=== PATIENT | male | born 1940 | race Asian ===

== ENCOUNTER 2023-07-07 20:22 | Emergency (ER) | payer SELFPAY ==
[2023-07-07 20:29] VITALS: BP 115/58
--- NOTE | 2023-07-08 00:08 | ED.GENMED ---
History of Present Illness
General
Chief Complaint: Fall
Source: patient and family
Exam Limitations: dementia
Time Seen by Provider: 07/07/23 22:24
Nursing documentation reviewed up to this point in time: agreed with
Travel History
Have you had any contact with someone who has COVID-19?: No
Do you have any symptoms of coronavirus? Fever > 100 degrees, chills, cough, shortness of breath, sore throat, loss of taste or smell, muscle aches, or headache?: No
History of Present Illness
History of Present Illness:
83-year-old male from home, daughter is in the room with him they state he ate dinner and then went to the bathroom and in the process of cleaning his teeth he fell backwards and struck the back of his head on the floor. He is [place]ine[place] speaking
only. Daughters state that he remembers eating dinner but he does not remember falling. The daughter heard the fall and went immediately to the bathroom and found him laying flat on his back having struck the back of his head on the wooden floor.
They admit that he has a 'bad memory.'
At this time he denies headache or neck pain. He is blind. He denies weakness in his extremities. Denies chest pain or trouble breathing. Denies abdominal pain, nausea vomiting or diarrhea.
There was no seizure activity. He is not anticoagulated. He did have a glass of wine with dinner.
Daughter state he is back to his baseline mental state.
Past History
Past History
ED Past Medical History: Psychiatric ('Memory loss'), Other (Prostatitis) and Other (Blindness)
Social History
Tobacco: Non-smoker
Alcohol: Occasional (Drinks 1)
Personal:
Living: with family
Review of Systems
Review of Systems
Allergies reviewed?: Yes
All Other Systems: ROS reviewed and negative except as documented in HPI and ROS
Constitutional: Denies fever
Respiratory: Denies trouble breathing
Cardiac: Reports syncope (questionable syncope); Denies chest pain
ABD/GI: Denies abdominal pain, nausea, vomiting, diarrhea or anorexia
: Denies dysuria or difficulty voiding
Musculoskeletal: Reports no symptoms
Skin: Reports no symptoms
Neurological: Denies dizzy or headache
Phy Exam
Physical Exam
Physical Exam:
GENERAL: No acute distress. A&Ox3.
CONSTITUTIONAL: Afebrile.
EYES: Blind with opaque cornea's
Neck: Supple
ENMT: moist mucus membranes, Pharynx nl
RESPIRATORY: Regular respirations, nonlabored, lungs clear.
CARDIOVASCULAR: Regular rate and rhythm, no murmurs, no rubs.
GI: Soft, nontender, normal BS
MUSCULOSKELETAL: Moves with ease. Well perfused. No edema
SKIN: Warm, dry, pink
PSYCH: Normal mood and affect. Well kept, interactive and appropriate
NEUROLOGIC: Awake, alert and oriented. No focal neurological deficits. Strength equal 5/5 throughout. Patient out of bed and ambulating with normal gait.
Course
Orders/Labs/Results
Orders:
Orders
07/08/23 00:05
Electrocardiogram (*1) Urgent
Reason for Study: Other
Other Reason for Exam: questionable syncope
EKG- Treatment ONCE
07/08/23 00:06
CT Head W/o Iv Contrast Urgent
Comment:
Reason For Exam: questionable syncope, fall hit head
07/08/23 00:19
Complete Blood Count/With Diff Urgent
Comprehensive Metabolic Panel Urgent
Troponin I Urgent
Abnormal Lab Results
07/08/23
00:19
RBC 3.98 L 10^6/uL
(4.70-6.10)
Hct 37.7 L %
(39.0-52.0)
MCV 94.7 H fL
(80.0-94.0)
MCH 34.9 H pg
(27.0-31.0)
Abs Immat Gran (auto) 0.1 H 10^3/uL
(0-0.05)
Immature Gran % 0.8 H %
(0-0.5)
Lymphocytes % 17.5 L %
(20.5-51.1)
BUN 21 H mg/dl
(9-20)
Glucose 114 H mg/dl
(70-99)
07/08/23 00:19
07/08/23 00:19
Vital Signs
Initial and Last Documented VS:
Initial Vital Signs
Temp Pulse Resp BP Pulse Ox
97.9 F 72 24 115/58 100
07/07/23 20:29 07/07/23 20:29 07/07/23 20:29 07/07/23 20:29 07/07/23 20:29
Last Documented Vital Signs
Temp Pulse Resp BP Pulse Ox
97.9 F 74 18 115/58 99
07/07/23 20:29 07/08/23 01:41 07/08/23 01:41 07/07/23 20:29 07/08/23 01:41
MDM/Problems Addressed
Differential Diagnosis Includes:
Questionable syncopal episode, TIA, dehydration, UTI, ACS
MDM/Problems Addressed:
83-year-old male from home, daughter is in the room with him they state he ate dinner and then went to the bathroom and in the process of cleaning his teeth he fell backwards and struck the back of his head on the floor. He is [place]ine[place] speaking
only. Daughters state that he remembers eating dinner but he does not remember falling. The daughter heard the fall and went immediately to the bathroom and found him laying flat on his back having struck the back of his head on the wooden floor.
They admit that he has a 'bad memory.'
At this time he denies headache or neck pain. He is blind. He denies weakness in his extremities. Denies chest pain or trouble breathing. Denies abdominal pain, nausea vomiting or diarrhea.
There was no seizure activity. He is not anticoagulated. He did have a glass of wine with dinner.
Daughter state he is back to his baseline mental state.
Vital signs stable
Afebrile
07/08/2023 0121 AM
Family state patient is basically back to his baseline, he is pleasant, cooperative, ambulates well with steady gait
CBC with no clinically significant abnormality
CMP with no clinically significant abnormality
Troponin normal
EKG sinus rhythm with PACs
Head CT: NAD
Pt had neg U/A here on 06/18 no need to repeat, order cancelled.
Workup neg, family comfortable taking him home.
*Critical Care Note
Total Time (30-74mins, 75-104mins- exclusive of procedures): Not Applicable
ED Attending Note
-
Portions of this chart may have been created with voice recognition software.� Occasional wrong word or��sound alike� substitutions may have occurred due to the inherent limitations of voice recognition software.
Discharge Plan
Departure
Patient Disposition: Home (Routine Discharge)
Date of Disposition: 07/08/23
Time of Disposition: :
Patient with high blood pressure during this ER visit?: No
Condition: Good
Discharge Problem:
Fall
Instructions: Head Injury in Adults (DC), Preventing falls in adults
Referrals:
NONE,* [Family Provider] -
Activity Restrictions/Additional Instructions:
As we discussed, your work up here shows nothing worrisome.
Interventions
Interventions:
*Risk Screen - Suicide Last Done: 07/07/23 20:29
*General Assessment Last Done: 07/08/23 01:40
*Neglect/Abuse Screening Last Done: 07/07/23 20:29
ED- Fall Risk Assessment Last Done: 07/08/23 00:40
*ED COVID-19 Vaccine History Last Done: 07/08/23 01:40
*Nursing Disposition Last Done: 07/08/23 01:41
ED-Musculoskeletal Assessment Last Done: 07/08/23 00:40
ED- Neurological Assessment Last Done: 07/08/23 00:40
ED-Skin Assessment Last Done: 07/08/23 00:40
Discharge Date and Time
Discharge Date/Time: 07/08/23 01:42
[2023-07-08 00:37] LABS: % Basophils 0.3 % (0-2); % Eosinophils 0.8 % (0-6); % Immature Granulocytes 0.8 % (0-0.5); % Lymphocytes 17.5 % (20.5-51.1); % Monocytes 7.1 % (1.7-9.3); % Neutrophils 73.5 % (42.2-75.2); Absolute Eosinophils 0.1 10^3/uL (0-0.7); Absolute Immature Granulocytes 0.1 10^3/uL (0-0.05); Absolute Lymphocytes 1.2 10^3/uL (1.2-3.4); Absolute Monocytes 0.5 10^3/uL (0.1-0.6); Absolute Neutrophils 4.9 10^3/uL (1.4-6.5); Hematocrit 37.7 % (39.0-52.0); Hemoglobin 13.9 g/dL (13.0-18.0); Mean Corp Hgb Conc. 36.9 g/dL (33.0-37.0); Mean Corpuscular Hgb 34.9 pg (27.0-31.0); Mean Corpuscular Volume 94.7 fL (80.0-94.0); Mean Platelet Volume 10.2 fL (7.4-10.4); Nucleated Red Blood Cells % 0 % (-); Platelet Count 131 10^3/uL (130-400); Red Blood Cell Count 3.98 10^6/uL (4.70-6.10); Red Cell Dist. Width 12.3 % (11.5-14.5); White Blood Cell Count 6.6 10^3/uL (4.8-10.8)
[2023-07-08 00:54] LABS: ALT (SGPT) 17 U/L (0-50); AST (SGOT) 24 U/L (17-59); Albumin 4.1 g/dl (3.5-5.0); Alkaline Phosphatase 61 U/L (38-126); Blood Urea Nitrogen 21 mg/dl (9-20); Calcium 8.8 mg/dl (8.4-10.2); Carbon Dioxide 27 mmol/L (22-30); Chloride 106 mmol/L (98-107); Glucose 114 mg/dl (70-99); Potassium 4.1 mmol/L (3.5-5.1); Sodium 135 mmol/L (135-145); Total Bilirubin 0.5 mg/dl (0.2-1.3); Total Protein 6.8 g/dl (6.3-8.2); eGFR > 60.00
[2023-07-08 01:07] LABS: Troponin I < 0.012 ng/ml
== END 2023-07-08 01:42 | disposition home or self-care (01) ==
LOC: EMR 20:22
PROVIDERS: Registered Nurse; EMERGENCY PHYSICIAN Emergency Medicine
DX: S09.90XA Unspecified injury of head, initial encounter (principal); W19.XXXA Unspecified fall, initial encounter; F03.90 Unspecified dementia, unspecified severity, without behavioral disturbance, psychotic disturbance, mood disturbance, and anxiety; H54.7 Unspecified visual loss
CPT/HCPCS: 99284; 70450; 80053; 84484; 85025; 93005

== ENCOUNTER 2024-09-14 12:49 | Inpatient (IN) | payer OTHER, SELFPAY ==
[2024-09-12] VITALS (7 sets, daily range): BP systolic 129–170; BP diastolic 58–103; BMI 21.6
--- NOTE | 2024-09-12 10:55 | ED.CVA ---
History of Present Illness
General
Chief Complaint: CVA/TIA Symptoms
Source: patient and welding instructor (Friend)
Exam Limitations: none
Time Seen by Provider: 09/12/24 10:45
Nursing documentation reviewed up to this point in time: agreed with
Onset of Stroke Symptoms
Onset of symptoms known: Yes
Date of onset of symptoms: 09/12/24
Time pt last seen normal is known: Yes
Date last time pt seen normal: 09/11/24
History of Present Illness
History of Present Illness:
84-year-old male presents Emergency Department due to slurred speech and a fall last night. He was last seen normal last night.
Past History
Past History
ED Past Medical History: Psychiatric ('Memory loss'), Other (Prostatitis) and Other (Blindness)
ED Past Surgical History: Brain and Other (Glaucoma)
Social History
Tobacco: Non-smoker
Alcohol: Occasional (Drinks 1)
Personal:
Living: with family
Review of Systems
Review of Systems
Allergies reviewed?: Yes
All Other Systems: Not applicable
Constitutional: Reports no symptoms
EENT: Reports no symptoms
Respiratory: Reports no symptoms
Cardiac: Reports no symptoms
ABD/GI: Reports no symptoms
: Reports no symptoms
Musculoskeletal: Reports no symptoms
Skin: Reports no symptoms
Neurological: Reports other (Slurred speech)
Endocrine: Reports no symptoms
Hematologic/Lymphatic: Reports no symptoms
Psychiatric: Reports no symptoms
Phy Exam
Physical Exam
Physical Exam:
Physical Exam
General: no apparent distress, not acutely ill
Neck: supple. no meningeal signs. normal posterior pharynx
Heart: s1/s2 regular rate and rhythm, no murmur. equal radial
pulses.
HEENT: Pupils equal round reactive to light, EOMI
Lungs: no acute respiratory distress. clear bilaterally
Abdomen: normal bowel sounds. not tender. no CVAT
Neuro: alert and oriented. no focal neurological deficits, right facial droop
Skin: no rash
Psychiatric: well kept. interactive and cooperative
Extremities: no edema. no calf tenderness. negative homans. good distal pulses
Course
Orders/Labs/Results
Orders:
Orders
09/12/24 10:45
CT HEAD STROKE ALERT W/o Cont Urgent
Comment:
Reason For Exam: slurred speech
Cardiac Monitoring- Treatment ONCE
EKG- Treatment ONCE
09/12/24 10:46
Electrocardiogram (*1) Urgent
Reason for Study: TIA/Stroke
09/12/24 10:47
IV Insert/Care/Rem.- Treatment PRN
09/12/24 10:53
CT HEAD/NECK ANG STROKE ALERT Urgent
Comment:
Reason For Exam: right facial droop, slurred speech
09/12/24 11:09
Alcohol Urgent
Complete Blood Count/With Diff Urgent
Comprehensive Metabolic Panel Urgent
Glycohemoglobin (HgbA1c) Urgent
09/12/24 12:33
Admit/Transfer Patient As Directed
Co-Sign Provider:
Level of Care: Observation services
Assign to:: Telemetry
Physician / Group: nayeli paz
Diagnosis: CVA
Reason for Telemetry: CVA/TIA
Date to Stop Telemetry: 09/15/24
Time to Stop Telemetry: 11:00
Code Status As Directed
Resuscitation Status: Full Code
PRN Pain Medication Management As Directed
May give lesser potent ordered pain med per pt: Yes
preference::
Protocol:: Medication orders for pain may be administered in a
manner that supports deferring to patient preference
when the pt is:
- Requesting an ordered lesser potent pain medication.
Least to most potent pain medications are defined
as: acetaminophen < NSAID < tramadol < opioids
(morphine, oxycodone, hydromorphone).
- Requesting a lesser dose of the same medication IF
ORDERED.
- Requesting a less intrusive route of administration
if both routes are prescribed by the provider (PO <
IV).
09/12/24 14:41
Acetaminophen [Tylenol/Feverall] 650 mg RECTAL Q4HPRN PRN
Acetaminophen [Tylenol] 650 mg PO Q4HPRN PRN
09/12/24 14:41
Echo 2D MMode Color/Doppler Routine
Reason for Study: stroke/TIA
Case Management Consult ONCE
Case Management Consult: Discharge Planning
Comment: stroke/tia
DIETARY IP CONSULT Routine
Reason for Consult: stroke/TIA
NEUROLOGY CONSULT Urgent
Consulting Provider: Perla Coffey
Was physician already notified: Yes
Developmental Services Worker Urgent
MR Brain Without Contrast Routine
Comment:
Reason For Exam: stroke/TIA
Recent pill cam endoscopy?: No
Activity As Directed
Activity Level: As Tolerated
NIH Stroke Scale As Directed
Directions: Per protocol
Comment: every shift and with any change in condition or mental status
Neurological Checks As Directed
Frequency: q4h
Additional Instructions:: q4h x 24h upon admission to the floor, then qshift & with any change in condition
and mental status
Patient Education As Directed
Type: Stroke education packet
Comment: provide to patient and family
Pneumatic Compression Sleeves As Directed
Type: Thigh high
Swallow Screening CVA/TIA ONLY As Directed
Comment: NPO until swallowing screening completed
If patient FAILS swallow screening:: NPO, Speech Therapy consult, Aspiration Precautions
If patient PASSES swallow screening, diet:: Cholesterol Lowering
Vital Signs As Directed
Frequency: Per unit guidelines
Ot Eval And Treat Routine
Pt Eval And Treat Routine
Activity Level: As Tolerated
Speech Therapy Eval & Treat Routine
DX Deep Vein Thrombosis Video Routine
09/12/24 18:00
Atorvastatin [Lipitor] 40 mg PO QPM
09/13/24 06:00
Cardiovascular Evaluation IN AM
09/13/24 08:00
Aspirin Chewable [Low Strength Aspirin] 81 mg PO DAILY
Finasteride [Proscar] 5 mg PO DAILY
09/15/24 11:00
DC Protocol for Telemetry ONCE
Abnormal Lab Results
09/12/24
11:09
MCV 94.1 H fL
(80.0-94.0)
MCH 32.3 H pg
(27.0-31.0)
MPV 10.7 H fL
(7.4-10.4)
Absolute Lymphs (auto) 0.9 L 10^3/uL
(1.2-3.4)
Neutrophils % 80.5 H %
(42.2-75.2)
Lymphocytes % 12.7 L %
(20.5-51.1)
Glucose 195 H mg/dl
(70-99)
09/12/24 11:09
09/12/24 11:09
Vital Signs
Initial and Last Documented VS:
Initial Vital Signs
Temp Pulse Resp BP Pulse Ox
97.7 F 98 18 129/103 97
09/12/24 10:38 09/12/24 10:38 09/12/24 10:38 09/12/24 10:38 09/12/24 10:38
Last Documented Vital Signs
Temp Pulse Resp BP Pulse Ox
97.6 F 77 16 138/68 97
09/12/24 14:05 09/12/24 14:05 09/12/24 14:05 09/12/24 14:05 09/12/24 14:05
MDM/Problems Addressed
Differential Diagnosis Includes:
CVA, alcohol intoxication
MDM/Problems Addressed:
84-year-old male with CVA. No signs intracranial hemorrhage, unsure last known normal. Not indication for tPA or interventional therapy. Admit to hospitalist for further workup.
*Radiology
Radiology exam reviewed: radiology read reviewed (CT head and neck no acute findings)
*Pulse Oximetry
Patient hypoxic: no
*EKG
Interpreted by ED Provider?: Yes
EKG Intrepretation Date: 09/12/24
EKG Intrepretation Time: 11:58
Interpretation: normal
Comparison EKG: no comparison EKG present
Heart Rate: 78
Rate: normal
Rhythm: sinus
[place]: normal axis
Interval: normal interval
QRS Pattern: normal QRS
Ischemia: no ischemia
*[employer] Consultant Interpretation
Rate: normal
Interpretation: normal
Heart Rate: 80
Rhythm: sinus
*Critical Care Note
Total Time (30-74mins, 75-104mins- exclusive of procedures): 32
comment:
Critical care statement: A total of 32 minutes of critical care time was provided for this patient. This includes management of unstable vital signs, evaluation of the patient at bedside, reviewing the patient's pertinent medical records, discussion
with consultants, review of old EKGs and review of pertinent medical records. This time with separate from time utilized to perform the aforementioned documented procedures
Patient Management
Social determinants of health affecting care: Living situation and Substance abuse (Alcohol)
Discussion with other providers: Hospitalist and Stripper Apprentice (Neurology)
Escalation/DeEscalation of care consider admission/obs:
Admit indicated
ED Attending Note
-
Portions of this chart may have been created with voice recognition software.� Occasional wrong word or��sound alike� substitutions may have occurred due to the inherent limitations of voice recognition software.
Discharge Plan
Departure
Patient Disposition: Admit
Date of Disposition: 09/12/24
Time of Disposition: 12:14
Admit to: Telemetry
Presentation/result/management discussed w/ accepting MD/DO: Hospitalist
Patient with high blood pressure during this ER visit?: Yes
Condition: Fair
Discharge Problem:
Acute cerebrovascular accident (CVA)
Interventions
Interventions:
*Risk Screen - Suicide Last Done: 09/12/24 10:38
*General Assessment Last Done: 09/12/24 10:38
*Neglect/Abuse Screening Last Done: 09/12/24 10:38
*ED COVID-19 Vaccine History Last Done: 09/12/24 11:00
*Nursing Disposition Last Done: 09/12/24 13:56
ED- Pulmonary Assessment Last Done: 09/12/24 11:00
ED- Neurological Assessment Last Done: 09/12/24 11:00
ED- Cardiac Assessment Last Done: 09/12/24 11:00
ED Swallowing Screen Last Done: 09/12/24 11:00
Discharge Date and Time
Discharge Date/Time: 09/12/24 13:57
--- NOTE | 2024-09-12 11:14 | CON.NEURO ---
Consultation
Order
Date of Consultation: 09/12/24
Requesting Provider: Dima Lee DO
Reason for Consult: Stroke alert
Called in at 10:47 am
Neurology Consultation Note.
HPI: This is an 84-year-old man who presented to [facility] on 09/12/2024 with right hemiparesis. According to patient's family friend Mr. Johnson sustained in a fall at midnight and required assistance with ambulation since. He was
noted to be dysarthric today in the morning. The patient complains of right-sided weakness. No reports of sensory deficits, at baseline patient is blind and ambulatory.
ER VS: 129/103, 98, afebrile
EKG: pending
PDMP: none
Labs: Glucose�195, normal sodium, creatinine�1.1, platelets�148
CT head wo contrast�left internal capsule hypodensity, new since June 2023; chronic thalamic infarct, mild to moderate atrophy.
PMH: L SDH?, cognitive impairment, BPH, glaucoma, blindness
PSH: left frontal kristie
SH: ; originally from [place], speaks [employer] lives with daughter and sons in law mother
FH: Not contributory to current presentation
All:NKDA
ROS: Positive for right-sided weakness
General: Well developed. In no acute distress.
Cardio: Regular rate and rhythm. Extremities are without cyanosis or edema.
Neuro:
Mental Status: Alert, follows requests. Speaks Mandarin.
Cranial Nerves: Corneal opacification. No light perception OU. No blink to threat. Right facial weakness. Hearing is preserved. Reported mild dysarthria
Motor: Mild right pronator drift. No right leg drift.
Sensory: Limited sensory exam due to language barrier and comprehension
Coordination: Unable to assess due to blindness
Gait: deferred
Assessment and Plan:
I. Fever left pure motor lacunar syndrome. 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 Not a candidate for IV TNK due to timing of symptoms onset.
II. Chronic encephalopathy
III. Blindness.
-Continue Telemetry monitoring
-EKG
-Fall precautions
-Brain MRI without neisha
-TTE
- ASA 81 mg QD
-Lipitor 40 mg QHS.
-Please check HbA1C, LDL.
-I have left a message for patient's daughter with request to return my call to obtain collateral history
-PT
-DVT prophylaxis.
I personally reviewed all radiology and labs along with past medical records pertinent to current medical problems. Total time spent in patient care is 45 minutes.
Thank you for allowing us to participate in the care of this patient. We will continue to follow. Please do not hesitate to contact us with any questions or concerns.
Subjective/Objective
Subjective Data
Date of Service: September 12, 2024
Objective Data
Vital Signs
Temp Pulse Resp BP Pulse Ox
36.5 C 98 18 129/103 97
09/12/24 10:38 09/12/24 10:38 09/12/24 10:38 09/12/24 10:38 09/12/24 10:38
Patient Allergies
No Known Allergies Allergy (Verified 09/12/24 10:36)
[2024-09-12 11:16] LABS: % Basophils 0.3 % (0-2); % Eosinophils 0.4 % (0-6); % Immature Granulocytes 0.3 % (0-0.5); % Lymphocytes 12.7 % (20.5-51.1); % Monocytes 5.8 % (1.7-9.3); % Neutrophils 80.5 % (42.2-75.2); Absolute Lymphocytes 0.9 10^3/uL (1.2-3.4); Absolute Monocytes 0.4 10^3/uL (0.1-0.6); Absolute Neutrophils 5.9 10^3/uL (1.4-6.5); Hematocrit 44.6 % (39.0-52.0); Hemoglobin 15.3 g/dL (13.0-18.0); Mean Corp Hgb Conc. 34.3 g/dL (33.0-37.0); Mean Corpuscular Hgb 32.3 pg (27.0-31.0); Mean Corpuscular Volume 94.1 fL (80.0-94.0); Mean Platelet Volume 10.7 fL (7.4-10.4); Nucleated Red Blood Cells % 0 % (-); Platelet Count 148 10^3/uL (130-400); Red Blood Cell Count 4.74 10^6/uL (4.70-6.10); Red Cell Dist. Width 13.2 % (11.5-14.5); White Blood Cell Count 7.3 10^3/uL (4.8-10.8)
[2024-09-12 11:29] LABS: ALT (SGPT) 18 U/L (0-50); AST (SGOT) 23 U/L (17-59); Albumin 4.6 g/dl (3.5-5.0); Alkaline Phosphatase 64 U/L (38-126); Blood Urea Nitrogen 12 mg/dl (9-20); Calcium 9.4 mg/dl (8.4-10.2); Carbon Dioxide 26 mmol/L (22-30); Chloride 105 mmol/L (98-107); Glucose 195 mg/dl (70-99); Potassium 4.1 mmol/L (3.5-5.1); Sodium 143 mmol/L (135-145); Total Bilirubin 0.6 mg/dl (0.2-1.3); eGFR > 60.00
[2024-09-12 11:37] LABS: Alcohol None Detected
--- NOTE | 2024-09-12 12:18 | HPS.HSE ---
Family Physician
-
Family Physician: LANA SCOTT MD
Chief Complaint
-
right side weakness
History of Present Illness
84-year-old with past medical history for legally blind, BPH presented to us with right-sided weakness since last night. Around 4:00 this morning, he got up to use the bathroom. He lost the balance, hit the head on the door and fell. Patient
denied any headache or dizzy patient denies any fever, chills, cough., Chest pain or shortness of breath. Patient denies abdominal pain, nausea, vomiting or diarrhea. Patient denies dysuria materia.
Head CT with impression of foci of decreased density suggestive of areas of old infarction.
Admitted for further management
Medical History
Past Medical History
Past Medical History: Reports Other
Additional Past Medical History:
BPH
Legally blind
Past Surgical History: Reports None
Social History
Tobacco: Non-smoker
Alcohol: Occasional
Drug: None
Personal:
Living: With Family
Family History
Family History: Not pertinent
Allergies / Home Medications
Allergies reflects when Allergies were last updated in [employer].
Home Medications with original date entered in [employer]
Allergy/Medication List:
Allergies
Allergy/AdvReac Type Severity Reaction Status Date / Time
No Known Allergies Allergy Verified 09/12/24 10:36
Review of Systems
-
Constitutional: Reports No Symptoms
EENT: Reports No Symptoms
Respiratory: Reports No Symptoms
Cardiac: Reports No Symptoms
Abdomen/GI: Reports No Symptoms
: Reports No Symptoms
Musculoskeletal: Reports No Symptoms
Skin: Reports No Symptoms
Neurological: Reports Other (Right-sided weakness)
Endocrine: Reports No Symptoms
Hematologic/Lymphatic: Reports No Symptoms
Psych: Reports No Symptoms
Physical Exam
Vital Signs
Vital Signs
Temp Pulse Resp BP Pulse Ox
97.7 F 98 18 129/103 97
09/12/24 10:38 09/12/24 10:38 09/12/24 10:38 09/12/24 10:38 09/12/24 10:38
Physical Exam
General: Well Developed, Well Nourished and No Apparent Distress
HEENT: NormoCephalic, Moist mucous membranes and Atraumatic
Respiratory: Clear
Cardiac: S1/S2 and Regular Rhythm; No Murmur or Rub
GI: Soft, Non Tender, Non Distended and Normal Bowel Sounds; No Organomegaly
Rectal: Deferred by Provider
Musculoskeletal: No Clubbing, No Cyanosis and No Edema
Skin: No Rash
Neuro: AO x 3 and Nonfocal/grossly intact
Psych: Calm
Laboratory Results
-
09/12/24 11:09
09/12/24 11:09
Laboratory Results
Total Bilirubin 0.6 mg/dl (0.2-1.3) 09/12/24 11:09
AST 23 U/L (17-59) 09/12/24 11:09
ALT 18 U/L (0-50) 09/12/24 11:09
Alkaline Phosphatase 64 U/L (38-126) 09/12/24 11:09
Data Reviewed
-
CT Scan: Report Reviewed by me
Lab Data: Labs Reviewed by me
Impression/Plan
-
#Acute CVA
-Head CT with ambulation of foci of decreased density suggestive of areas of old infarction.No convincing CT evidence for acute intracranial abnormality.
-Head neck CTA with the impression of No evidence to suggest hemodynamically significant stenosis of the common carotid arteries, carotid bulbs, or proximal internal carotid arteries bilaterally. No significant narrowing involving the cervical
internal carotid arteries bilaterally.Moderate calcification involving the cavernous internal carotid arteries, with narrowing likely in the range of 25-50%, borderline for hemodynamically significant stenoses.Normal appearance of the anterior and
middle cerebral arteries with no evidence for large vessel occlusion or high-grade stenosis.Dominant left vertebral artery with small caliber/hypoplastic right vertebral artery. Right vertebral artery appears to terminate as the posterior inferior
cerebellar artery.Focal loss of flow signal involving the P2 portion of the left posterior cerebral artery, suggesting a focal high-grade narrowing.Severe changes of emphysema within the visualized upper lungs. Linear and spiculated density within
the posterior and superior right upper lobe of the lung, most likely scarring, but no comparison examination available. As warranted, consideration for follow-up CT of the chest.Air density in the right paratracheal region of the upper chest, which
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
-Obtain MRI, TTE
-Aspirin and Lipitor continued
-Obtain A1c and lipid panel
-PT/OT consulted
-Neurology following
# BPH
-Finasteride and Flomax continued
# DVT prophylaxis
-SCDs
# CODE STATUS
Full code-
--- NOTE | 2024-09-12 12:45 | W.PN.UPDATE ---
Update Note
Progress Note Update
This note serves as an addendum to the H&P by professor of psychiatry KATHYRN Sally GREENBERG
HPI:
84M Rt handed M, legally blind, BPH seen at ER:
- abrupt onset of right-sided weakness since last night
- Around 4:00 this morning, he loss balance on his way to [place] , fall and hit the head on the door and fell.
ROS:
- denied any headache or dizzy patient denies any fever, chills, cough., Chest pain or shortness of breath.
- denies abdominal pain, nausea, vomiting or diarrhea. Patient denies dysuria materia.
Head CT with impression of foci of decreased density suggestive of areas of old infarction.
Vital Signs
Temp Pulse Resp BP Pulse Ox
97.7 F 98 18 129/103 97
09/12/24 10:38 09/12/24 10:38 09/12/24 10:38 09/12/24 10:38 09/12/24 10:38
Physical Exam
General: No Apparent Distress
HEENT: Normo Cephalic, Atraumatic
Respiratory: Clear
Cardiac: S1/S2 and RRR; No Murmur
GI: Soft, Non Tender, Non Distended and Normal Bowel Sounds
Musculoskeletal: No Edema
Skin: No Rash
Neuro: AO x 3 Nonfocal/grossly intact
Psych: Calm
Lab
Total Bilirubin 0.6 mg/dl (0.2-1.3) 09/12/24 11:09
AST 23 U/L (17-59) 09/12/24 11:09
ALT 18 U/L (0-50) 09/12/24 11:09
Alkaline Phosphatase 64 U/L (38-126) 09/12/24 11:09
#Acute CVA
HCT:
- foci of decreased density suggestive of areas of old infarction.
- No convincing CT evidence for acute intracranial abnormality.
Head neck CTA
- No evidence to suggest hemodynamically significant stenosis of the common carotid arteries, carotid bulbs, or proximal internal carotid arteries bilaterally.
- No significant narrowing involving the cervical internal carotid arteries bilaterally.
- Moderate calcification involving the cavernous internal carotid arteries, with narrowing likely in the range of 25-50%, borderline for hemodynamically significant stenoses.
- Normal appearance of the anterior and middle cerebral arteries with no evidence for large vessel occlusion or high-grade stenosis.
- Dominant left vertebral artery with small caliber/hypoplastic right vertebral artery. Right vertebral artery appears to terminate as the posterior inferior cerebellar artery.Focal loss of flow signal involving the P2 portion of the left posterior
cerebral artery, suggesting a focal high-grade narrowing.
- Severe changes of emphysema within the visualized upper lungs.
- Linear and spiculated density within the posterior and superior right upper lobe of the lung, most likely scarring, but no comparison examination available.
As warranted, consideration for follow-up CT of the chest.
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
ASSESSMENT & PLAN
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
Rt handed M
HCT suggest small foci of old infarcts
Non Estonian speaker, Mandarin speaker
Expressive and receptive speech: fluent ( can count 1- 10 by Mandarin, preserved social skills in Mandarin)
Symmetric moment all extremities
Legally blind
- Brain MRI
- TTE
- Imitated loading dose of Aspirin and Lipitor continued
- A1c and lipid panel
- PT/OT consulted
- Neurology consulted
Linear and spiculated density within the posterior and superior right upper lobe of the lung, most likely scarring, but no comparison examination available.
- As warranted, consideration for follow-up CT of the chest
HX BPH
- on [employer] Finasteride and Flomax
DVT Px: SCD
Full code
IP TLM
--- NOTE | 2024-09-12 14:05 | PTCARENOTE ---
patient arrived via stretcher from ER. transferred to bed with assist x2, speaks fluent Mandarin Swedish and son-in-law at bedside. He is blind, aaox3, denies pain, vss, telemetry maintained, oriented to room and use of call medley, will continue to
monitor.
--- NOTE | 2024-09-12 15:21 | CM ---
Cm met with pt and son Zeke Mcconnell
Pt is mandarin speaking and legally blind
Pt resides with his spouse in a 2SH with 3STE, 13 steps up to second floor
Pt has a live-in caregiver who family private pays
Pt is indep with ambulatory with any ADs, he is able to manage all personal care
Caregiver assist with house management, driving and errands
PCP- Trina Myrick
Rx- [facility]
PT/OT/ST pending
Pt is OBS- GUAN verbally reviewed
Copy provided
Discharge Disposition- anticipate home with VN, watch for higher needs
[2024-09-12] MEDS: ASPIR LOW (ENTERIC COATED) 81 MG PO (15:38)
[2024-09-12] MEDS: PLAVIX 75 MG PO (15:39)
[2024-09-12] MEDS: LIPITOR PO ×2 (18:45→18:51)
--- NOTE | 2024-09-12 18:47 | PTCARENOTE ---
using iPad motor vehicle parts interpreter line to communicate with patient
[2024-09-13 00:09] VITALS: BP 160/80
[2024-09-13 03:48] VITALS: BP 163/77
[2024-09-13 06:39] LABS: HDL Cholesterol 31 mg/dl; LDL Cholesterol, Calculated 98 mg/dl; Total Cholesterol 164 mg/dl (50-199); Triglyceride 175 mg/dl (10-149); Very Low Density Lipoprotein 35 mg/dl (0-30)
[2024-09-13 07:00] VITALS: BP 125/78
[2024-09-13] MEDS: PLAVIX 75 MG PO (09:57)
[2024-09-13] MEDS: PROSCAR 5 MG PO (09:57)
[2024-09-13] MEDS: LOW STRENGTH ASPIRIN 81 MG PO (09:57)
--- NOTE | 2024-09-13 10:24 | W.PN.NEURO.1 ---
Today's Communication / Plan
-
.
Subjective/Objective
Subjective Data
Date of Service: September 13, 2024
Neurology follow-up note.
24-hour events, normotensive in the morning, afebrile.
Ms. Johnson states that his right arm weakness as well as dysarthria are improving. No reports of sensory deficits, headaches.
Labs: Glucose�195, normal sodium, creatinine�1.1, platelets�148
CT head wo contrast�left internal capsule hypodensity, new since June 2023; chronic thalamic infarct, mild to moderate atrophy.
EKG:NSR, QTc Int : 444 ms
LDL 98
PMH: L SDH?,MCI, BPH, glaucoma, legally blind, emphysema.
PSH: left frontal kristie
SH: ; originally from [place], retired teacher, lives with family; ambulates with no assistive device
FH: No family history of neurodegenerative disease
All:NKDA
ROS: Positive for right-sided weakness
General: Well developed. In no acute distress.
Cardio: Regular rate and rhythm. Extremities are without cyanosis or edema.
Neuro:
Mental Status: Alert, oriented to person, year, months. Follows simple requests consistently.
Cranial Nerves: Corneal opacification. No light perception OU. No blink to threat. Right facial weakness. Hearing is preserved. Reported mild dysarthria
Motor: Mild right pronator drift. No right leg drift.
Sensory: Limited sensory exam due to language barrier and comprehension
Coordination: Unable to assess due to blindness
Gait: deferred
Assessment and Plan:
I. Acute left pure motor lacunar syndrome. 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
II. Mixed chronic encephalopathy
III. Blindness.
-Continue Telemetry monitoring
-Fall precautions
-Dysphagia evaluation
-Brain MRI without neisha
-TTE
-DAPT for 3 weeks
-Lipitor 40 mg QHS.
-PT
-DVT prophylaxis.
-The case was discussed with patient's daughter and son-in-law.
I personally reviewed all radiology and labs along with past medical records pertinent to current medical problems. Total time spent in patient care is 40 minutes.
Thank you for allowing us to participate in the care of this patient. We will continue to follow. Please do not hesitate to contact us with any questions or concerns.
Objective Data
Vital Signs
Temp Pulse Resp BP Pulse Ox
36.3 C 78 16 125/78 98
09/13/24 07:00 09/13/24 07:00 09/13/24 07:00 09/13/24 07:00 09/13/24 07:00
Lab Results
09/12/24 11:09
09/12/24 11:09
Sodium 143 mmol/L (135-145) 09/12/24 11:09
Potassium 4.1 mmol/L (3.5-5.1) 09/12/24 11:09
BUN 12 mg/dl (9-20) 09/12/24 11:09
Glucose 195 mg/dl (70-99) H 09/12/24 11:09
Calcium 9.4 mg/dl (8.4-10.2) 09/12/24 11:09
LDL Cholesterol, Calc 98 mg/dl 09/13/24 05:51
Patient Allergies
No Known Allergies Allergy (Verified 09/12/24 10:36)
Vital Signs and Labs
-
Vital Signs and Labs:
Vital Signs
Temp Pulse Resp BP Pulse Ox
36.3 C 78 16 125/78 98
09/13/24 07:00 09/13/24 07:00 09/13/24 07:00 09/13/24 07:00 09/13/24 07:00
Lab Results
09/12/24 11:09
09/12/24 11:09
Sodium 143 mmol/L (135-145) 09/12/24 11:09
Potassium 4.1 mmol/L (3.5-5.1) 09/12/24 11:09
BUN 12 mg/dl (9-20) 09/12/24 11:09
Glucose 195 mg/dl (70-99) H 09/12/24 11:09
Calcium 9.4 mg/dl (8.4-10.2) 09/12/24 11:09
LDL Cholesterol, Calc 98 mg/dl 09/13/24 05:51
Medications
-
Medications:
Generic Name Dose Route Start Last Admin
Trade Name Freq PRN Reason Stop Dose Admin
Acetaminophen 650 mg 09/12/24 14:41
Acetaminophen 650 Mg Rectal Suppository RECTAL 10/10/24 14:40
Q4HPRN PRN
GUADARRAMA, mild pain, or temp >100.4F
Acetaminophen 650 mg 09/12/24 14:41
Acetaminophen 325 Mg Tablet PO 10/10/24 14:40
Q4HPRN PRN
GUADARRAMA, mild pain, or temp >100.4F
Aspirin 81 mg 09/13/24 08:00 09/13/24 09:57
Aspirin 81 Mg Chewable Tablet PO 10/11/24 07:59 81 mg
DAILY TERELL Administration
Atorvastatin Calcium 40 mg 09/12/24 18:00 09/12/24 18:51
Atorvastatin (Lipitor) 40 Mg Tablet PO 10/10/24 17:59 Not Given
QPM TERELL
Clopidogrel Bisulfate 75 mg 09/12/24 14:00 09/13/24 09:57
Clopidogrel 75 Mg Tablet PO 10/02/24 08:01 75 mg
DAILY TERELL Administration
Finasteride 5 mg 09/13/24 08:00 09/13/24 09:57
Finasteride 5 Mg Tablet PO 10/11/24 07:59 5 mg
DAILY TERELL Administration
Home Medications
-
Home Medications
finasteride 5 mg tablet 5 mg PO DAILY 09/12/24
finasteride 5 mg tablet (Proscar) 5 mg PO DAILY 09/12/24
[2024-09-13] MEDS: ASPIR LOW (ENTERIC COATED) PO (10:30)
--- NOTE | 2024-09-13 12:43 | W.PN.HOSP.TC ---
Today's Communication/Plan
-
tte
dapt
statin
hsq
Assessment / Plan
Assessment / Plan
Physical Exam
General: Well Developed, Well Nourished and No Apparent Distress
HEENT: NormoCephalic, Moist mucous membranes and Atraumatic
Respiratory: Clear
Cardiac: S1/S2 and Regular Rhythm; No Murmur or Rub
GI: Soft, Non Tender, Non Distended and Normal Bowel Sounds; No Organomegaly
Rectal: Deferred by Provider
Musculoskeletal: No Clubbing, No Cyanosis and No Edema
Skin: No Rash
Neuro: AO x 3 and Nonfocal/grossly intact
Psych: Calm
#Acute to subacute infarction involving the left paramedian judith.
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
-Telemetry monitoring
-Dysphagia evaluation
-TTE
-DAPT for 3 weeks
-Lipitor 40 mg QHS.
-PT
-DVT prophylaxis.
�Follow-up A1c
#Hyperlipidemia
� Continue statin
#Blindness, legally blind
# BPH
-Finasteride and Flomax continued
# DVT prophylaxis
hsq
# CODE STATUS
Full code-
Anticipated Discharge: Within 24 hours
Subjective/Interval History
-
Date of Service: September 13, 2024
no acute events overnight
Objective Data
-
Vital Signs:
Vital Signs
Temp Pulse Resp BP Pulse Ox
97.3 F 78 16 125/78 98
09/13/24 07:00 09/13/24 07:00 09/13/24 07:00 09/13/24 07:00 09/13/24 07:00
Review of Systems
-
History Source: Patient
All other systems: Not reviewed unless documented
Data Reviewed
-
CT Scan: Report Reviewed by me
MRI: Report Reviewed by me
Labs: Labs Reviewed by me
[2024-09-13 13:03] VITALS: BP 136/78; BP 166/97; PULSE 63; O2SAT 97
[2024-09-13 13:12] LABS: Glycohemoglobin (HgbA1c) 5.8 % (4.0-5.6)
--- NOTE | 2024-09-13 13:45 | CM ---
chart reviewed: PT recommends acute rehab vs. home with 24/7 care
[2024-09-13 15:00] VITALS: BP 144/76
--- NOTE | 2024-09-13 15:05 | PTCARENOTE ---
Patient OOB to bathroom with assist x1. Patient is blind, unsteady and right leg is weak. Patient climbs OOb without calling. Language line used to educated patient on using call medley before getting OOB. Patient verbalized understanding, but still
climbs OOB. Bed alarm maintained. Patient is a complete set up for meals and needs orientation as to where food is on tray.
[2024-09-13] MEDS: LIPITOR PO ×2 (18:30→21:17)
[2024-09-13] MEDS: HEPARIN SC ×2 (18:31→21:16)
--- NOTE | 2024-09-13 18:45 | PTCARENOTE ---
Patient refused to take Lipitor and and Heparin. Language line used to communicate and patient verbalized, 'It is not necessary. I will not take it.'
[2024-09-13 23:00] VITALS: BP 163/69
[2024-09-13] MEDS: HEPARIN 5000 UNITS SC (23:03)
[2024-09-14] VITALS (7 sets, daily range): BP systolic 131–152; BP diastolic 68–83; PULSE 74; O2SAT 100
[2024-09-14 06:31] LABS: Hematocrit 39.9 % (39.0-52.0); Hemoglobin 13.8 g/dL (13.0-18.0); Mean Corp Hgb Conc. 34.6 g/dL (33.0-37.0); Mean Corpuscular Hgb 32.6 pg (27.0-31.0); Mean Corpuscular Volume 94.3 fL (80.0-94.0); Platelet Count 146 10^3/uL (130-400); Red Blood Cell Count 4.23 10^6/uL (4.70-6.10); Red Cell Dist. Width 13.2 % (11.5-14.5); White Blood Cell Count 5.8 10^3/uL (4.8-10.8)
[2024-09-14 06:51] LABS: Blood Urea Nitrogen 12 mg/dl (9-20); Calcium 9.2 mg/dl (8.4-10.2); Carbon Dioxide 26 mmol/L (22-30); Chloride 108 mmol/L (98-107); Estimated Creatinine Clearance 47 ml/min; Glucose 99 mg/dl (70-99); Sodium 142 mmol/L (135-145); eGFR > 60.00
[2024-09-14] MEDS: PROSCAR 5 MG PO (10:13)
[2024-09-14] MEDS: PLAVIX 75 MG PO (10:13)
[2024-09-14] MEDS: LOW STRENGTH ASPIRIN 81 MG PO (10:13)
[2024-09-14] MEDS: HEPARIN 5000 UNITS SC ×3 (10:13→23:03)
--- NOTE | 2024-09-14 12:38 | W.PN.HOSP.TC ---
Today's Communication/Plan
-
Physiatry consult
PT/OT
Assessment / Plan
Assessment / Plan
#Acute to subacute infarction involving the left paramedian judith.
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
-Telemetry monitoring
-Dysphagia evaluation
-TTE
-DAPT for 3 weeks
-Lipitor 40 mg QHS.
-PT
-DVT prophylaxis.
� A1c 5.8%
#Hyperlipidemia
� Continue statin
#Blindness, legally blind
# BPH
-Finasteride and Flomax continued
# DVT prophylaxis
hsq
reviewed with son-in-lawLaurie
family requesting [facility] with plan to go home post rehab
will request speech eval
as per physician advisor, change status to full inpt
# CODE STATUS
Full code-
Anticipated Discharge: 24 - 48 hours
Subjective/Interval History
-
Date of Service: September 14, 2024
Awake, alert
Objective Data
-
Labs:
Laboratory Results
09/14/24
06:07
WBC 5.8
Hgb 13.8
Hct 39.9
Plt Count 146
Sodium 142
Potassium 4.0
Chloride 108 H
Carbon Dioxide 26
BUN 12
Creatinine 1.0
Glucose 99
Calcium 9.2
Vital Signs:
Vital Signs
Temp Pulse Resp BP Pulse Ox
97.7 F 68 18 143/78 95
09/14/24 11:02 09/14/24 11:02 09/14/24 11:02 09/14/24 11:02 09/14/24 11:02
I&O
09/13/24 09/14/24 09/15/24
06:59 06:59 06:59
Intake Total 120 / 120
Balance 120 / 120
Review of Systems
-
History Source: Family (son-in-law Laurie in room)
Constitutional: Denies Fever
EENT: Reports No Symptoms Reported
Respiratory: Reports No Symptoms
Cardiac: Reports No Symptoms; Denies Chest Pain
Abdomen/GI: Reports No Symptoms
Musculoskeletal: Reports Muscle Weakness (rt sided)
Physical Exam
-
General: Well Developed, Well Nourished and No Apparent Distress
HEENT: Normocephalic, Atraumatic and Moist Mucous Membranes
Respiratory: Clear to Auscultation; Negative Wheezes, Rales or Rhonchi
Cardiac: Regular Rhythm and S1/S2
GI: Soft, Nontender and Nondistended
Musculoskeletal: No Clubbing, No Cyanosis and No Edema
Neuro: Awake and Alert; Negative No Motor Deficits (rt sided weakness)
Psych: Calm
--- NOTE | 2024-09-14 13:28 | CON.MR ---
Documented by User: Sierra Villanueva MD, Resident 09/14/24 17:07
Consultation
Consultation Request
Date/Time Consultation Requested: 09/14/2024
Date/Time Consultation Performed: 09/14/2024
Medical History
-
Chief Complaint: Strokelike symptoms
History of Present Illness:
Patient is a Mandarin-speaking 84-year-old male with past medical history of BPH, legally blind with acute onset right-sided weakness on 09/12/2024. Patient got out of bed to go to the bathroom at 4 AM in the morning, lost his balance and fell.
Patient moved to the 2 years ago after losing his . He now lives with his [id number] in [place], and a live-in caregiver. According to the son-in-law, patient also had slurred speech after this event. Denies any sensory deficits.
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
CT head here showed foci of decreased density suggestive of areas of old infarction, no evidence for acute intracranial abnormality.
CTA head/neck showed no evidence to suggest hemodynamically significant stenosis of the common carotid arteries, carotid bulbs, or proximal internal carotid arteries bilaterally, focal loss of flow signal involving the P2 portion of the left
posterior cerebral artery, suggesting a focal high-grade narrowing. No significant narrowing involving the cervical internal carotid arteries bilaterally.
MRI brain showed focal area of acute to subacute infarction involving the left paramedian judith, a focus of old infarction involving the superior medial left lentiform nucleus, extending across the internal capsule with involvement of the posterior
and inferior aspect of the head of the left caudate nucleus.
Neurology was consulted, recommended DAPT for 3 weeks, Lipitor 40 nightly, TTE - pending. Today, patient is in no pain, notes right arm weakness which has been improving over the past days.
DVT prophylaxis heparin subcu
Past Medical History
Procedure History:
Head surgery after fall (a left frontal kristie hole with overlying metallic plate was seen on CT)
Social History
Functional Level Premorbidity:
Supervision for all activities.
Tobacco: Non-Smoker
Alcohol: Occasional
Personal:
Living: With Family
Is 24 hour care available: Yes
Number of Floors: 2
# Steps to Enter: 3
# Steps to Second Floor: 13
Potential First Floor Set Up: Yes
Driving: No
Employment: Retired
Allergies / Home Medications
Allergy/AdvReac Type Severity Reaction Status Date / Time
No Known Allergies Allergy Verified 09/12/24 10:36
�Medication �Instructions �Recorded �Confirmed �Last Taken �Type
finasteride 5 mg tablet 5 mg PO DAILY 09/12/24 09/12/24 09/11/24 History
finasteride 5 mg tablet (Proscar) 5 mg PO DAILY 09/12/24 09/12/24 09/11/24 History
Physical Exam
Active Medications
Generic Name Dose Route Start Last Admin
Trade Name Freq PRN Reason Stop Dose Admin
Acetaminophen 650 mg 09/12/24 14:41
Acetaminophen 650 Mg Rectal Suppository RECTAL 10/10/24 14:40
Q4HPRN PRN
GUADARRAMA, mild pain, or temp >100.4F
Acetaminophen 650 mg 09/12/24 14:41
Acetaminophen 325 Mg Tablet PO 10/10/24 14:40
Q4HPRN PRN
GUADARRAMA, mild pain, or temp >100.4F
Aspirin 81 mg 09/13/24 08:00 09/14/24 10:13
Aspirin 81 Mg Chewable Tablet PO 10/11/24 07:59 81 mg
DAILY TERELL Administration
Atorvastatin Calcium 40 mg 09/12/24 18:00 09/13/24 21:17
Atorvastatin (Lipitor) 40 Mg Tablet PO 10/10/24 17:59 Not Given
QPM TERELL
Clopidogrel Bisulfate 75 mg 09/12/24 14:00 09/14/24 10:13
Clopidogrel 75 Mg Tablet PO 10/02/24 08:01 75 mg
DAILY TERELL Administration
Finasteride 5 mg 09/13/24 08:00 09/14/24 10:13
Finasteride 5 Mg Tablet PO 10/11/24 07:59 5 mg
DAILY TERELL Administration
Heparin Sodium 5,000 units 09/13/24 16:00 09/14/24 10:13
Heparin 5,000 Units/Ml 1 Ml Vial SC 10/11/24 15:59 5,000 units
Q8 TERELL Administration
Vital Signs
Temp Pulse Resp BP Pulse Ox
97.7 F 68 18 143/78 95
09/14/24 11:02 09/14/24 11:02 09/14/24 11:02 09/14/24 11:02 09/14/24 11:02
Height 5 ft 7.72 in
Actual Weight 62.4 kg
Body Mass Index (BMI) 0.0
Physical Exam
Physical Exam:
General Appearance/Observation: Well-developed, well-nourished individual in no apparent distress.
Pain/Comfort Assessment: Denies
Mood/Affect: Appropriate
Integumentary/Operative Site:
Pressure Ulcer: absent
Other Type of Wound: absent
Eyes: Conjunctiva/Lids: normal Pupils: left pupil round and reactive to light and accommodation, left eye acuity: hand motion, right eye acuity: no light perception
Ears/Nose/Throat: oral mucosa moist, throat clear. Lips/Teeth/Gums: normal
Neck: No muscle spasm or tenderness
Cardiovascular: Heart: regular, no murmur
Pulses: dorsalis pedis 2+ bilaterally
Respiratory: Respiratory Effort/Chest Expansion: normal Auscultation: Clear to auscultation bilaterally
Gastrointestinal: abdomen not tender, no distension, normal abdominal bowel sounds
Genitourinary: No Fuentes
Rectal Exam: Deferred
Extremities: Edema: None Cyanosis: None Trophic changes: None
Neurology Exam:
Orientation: Alert, Oriented to Self, Time, Place
Memory: Intact immediately and at 3 minutes
Higher cortical function
Speech: Intact
Repetition: Intact
Comprehension: Intact
Two step command: Intact
Naming: Intact
Cranial Nerves:
CNII: Pupillary light reflex: Intact Visual Field: Abnormal
CN III, IV, : Extraocular muscles: Intact, nystagmus
CN V: Facial Sensation at Forehead: Intact , Maxilla: Intact, Mandible: Intact
CN VII: Facial movement: Flattening of the nasolabial fold on the right side
CN VIII: Hearing: Normal
CN IX/X: Speech & swallow: Normal, Position of Uvula: Midline
CN XI: Shoulder shrug: Symmetric
CN XII: Tongue protrusion: Midline
Sensory:
Light touch: Intact in bilateral lower extremities, decreased sensation on the dorsum of the right hand
Reflexes:
Biceps: 2+ bilaterally
Brachioradialis: 2+ bilaterally
Triceps: 2+ bilaterally
Patellar: 2+ bilaterally
Achilles: 2+ bilaterally
Babinski: Downgoing bilaterally
Clonus: None
Kilo: Negative bilaterally
Cerebellar: Dysmetria/Ataxia: None
Musculoskeletal:
Motor: (Manual muscle scale 0-5)
Muscle SA EF WE EE FF FA HF KE DF EHL PF
Right 2+ 4 5 4 4 4 4+ 5 4 5 5
Left 5 5 5 5 5 5 5 5 4+ 5 5
Tone: Normal in all extremities
Range of Motion: Passively within normal limits in all extremities
Lab Results
09/14/24 06:07
09/14/24 06:07
WBC 5.8 10^3/uL (4.8-10.8) 09/14/24 06:07
Hgb 13.8 g/dL (13.0-18.0) 09/14/24 06:07
Hct 39.9 % (39.0-52.0) 09/14/24 06:07
MCV 94.3 fL (80.0-94.0) H 09/14/24 06:07
Plt Count 146 10^3/uL (130-400) 09/14/24 06:07
Sodium 142 mmol/L (135-145) 09/14/24 06:07
Potassium 4.0 mmol/L (3.5-5.1) 09/14/24 06:07
Chloride 108 mmol/L (98-107) H 09/14/24 06:07
Carbon Dioxide 26 mmol/L (22-30) 09/14/24 06:07
BUN 12 mg/dl (9-20) 09/14/24 06:07
Creatinine 1.0 mg/dL (0.7-1.3) 09/14/24 06:07
eGFR > 60.00 09/14/24 06:07
Glucose 99 mg/dl (70-99) 09/14/24 06:07
Hemoglobin A1c Cancelled 09/12/24 14:41
Calcium 9.2 mg/dl (8.4-10.2) 09/14/24 06:07
Total Bilirubin 0.6 mg/dl (0.2-1.3) 09/12/24 11:09
AST 23 U/L (17-59) 09/12/24 11:09
ALT 18 U/L (0-50) 09/12/24 11:09
Alkaline Phosphatase 64 U/L (38-126) 09/12/24 11:09
Total Protein 8.0 g/dl (6.3-8.2) 09/12/24 11:09
Albumin 4.6 g/dl (3.5-5.0) 09/12/24 11:09
Diagnostic Results
As per HPI.
Assessment / Plan
Plan
PM&R PT/OT to increase independence with ADLs, improve balance, coordination, endurance, strength, mobility, community reintegration, decreased burden of care on others and family education.
CVA: Secondary prophylaxis with aspirin, statin, and blood pressure control (SBP less than 180 and diastolic less than 100 to participate with therapy for ischemic stroke). Continue to monitor neurologic status.
Right hemiparesis: High risk for falls and sliding out of chair/bed. Safety reinforced.
- Avoid using affected arm to help lift or pull patient as this will cause trauma to the shoulder.
Dysarthria: speech evaluation
HLD: Statin
Prediabetes: HbA1C 5.8%, accu-Cheks, insulin sliding scale.
BPH: Continue finasteride
Psych: Monitor mood, adjust medications as needed.
Skin: monitor for pressure sores/rashes/lesions.
Pain: acetaminophen or oxycodone as needed.
Bowel: Colace and Senna, PRN bisacodyl.
Bladder: Time void, PVRs, PRN straight cath.
DVT Prophylaxis: Heparin subcu
Safety: Continue to reinforce assistance with all transfers.
Code Status: Full code
Dispo (date/plan/equipment needs): Acute rehab. Social history reviewed.
Functional and Medical Goals: Modified Independent with ADL�s, ambulation, transfers
Summary
-
Summary of recommendations:
- Discharge Destination: Acute rehab
Thank you for allowing me to care for your patient. Please contact me with any questions or concerns.
Comments
-
This note was dictated using a voice recognition system. Please excuse any typographical errors from circle beveler. If you believe there are any discrepancies, please notify our office.

Documented by User: Abhinav Sosa MD 09/14/24 20:59
Consultation
Consultation Request
Requesting Provider: Dr. Rai Durbin
Performing Provider: Dr. Sosa
Reason for Consultation: Stroke
Medical History
-
History of Present Illness:
Patient is a Mandarin-speaking 84-year-old right-handed male with past medical history of BPH, legally blind with acute onset right-sided weakness on 09/12/2024. Patient got out of bed to go to the bathroom at 4 AM in the morning, lost his balance
and fell. Patient moved to the 2 years ago after losing his . He now lives with his [id number] in [place], and a live-in caregiver. According to the son-in-law, patient also had slurred speech after this event. Denies any sensory
deficits. 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
CT head here showed foci of decreased density suggestive of areas of old infarction, no evidence for acute intracranial abnormality.
CTA head/neck showed no evidence to suggest hemodynamically significant stenosis of the common carotid arteries, carotid bulbs, or proximal internal carotid arteries bilaterally, focal loss of flow signal involving the P2 portion of the left
posterior cerebral artery, suggesting a focal high-grade narrowing. No significant narrowing involving the cervical internal carotid arteries bilaterally.
MRI brain showed focal area of acute to subacute infarction involving the left paramedian judith, a focus of old infarction involving the superior medial left lentiform nucleus, extending across the internal capsule with involvement of the posterior
and inferior aspect of the head of the left caudate nucleus.
Neurology was consulted, recommended DAPT for 3 weeks, Lipitor 40 nightly, TTE - pending. Today, patient is in no pain, notes right arm weakness which has been improving over the past days.
DVT prophylaxis heparin subcu
[employer] interpreter used by phone.
Social History
Current Funct Level: Ambulation, Transfer, UE/LE Dressing:
Supervision bed mobility, min assist sit to stand, mod assist stand to sit, ambulating 10 feet x 2 without device mod assist with second person for safety. Min assist toilet transfer, min to mod assist ADLs.
Review Of Systems
-
History Source: Patient and Family
Constitutional: Reports No Symptoms
Eye: Reports Other (Legally blind)
EENT: Reports No Symptoms
Respiratory: Reports No Symptoms
Cardiac: Reports No Symptoms
Abdomen/GI: Reports No Symptoms
: Reports No Symptoms
Musculoskeletal: Reports No Symptoms
Integumentary: Reports No Symptoms
Neurological: Reports Weakness
Psych: Reports No Symptoms
Physical Exam
Physical Exam
Physical Exam:
General Appearance/Observation: Well-developed, well-nourished male in no apparent distress.
Pain/Comfort Assessment: Denies
Mood/Affect: Appropriate
Integumentary/Operative Site:
Pressure Ulcer: absent
Eyes: Conjunctiva/Lids: normal Pupils: left pupil round and reactive to light and accommodation, left eye acuity: hand motion, right eye acuity: no light perception
Ears/Nose/Throat: oral mucosa moist, throat clear. Lips/Teeth/Gums: normal
Cardiovascular: Heart: regular, no murmur
Pulses: dorsalis pedis 2+ bilaterally
Respiratory: Respiratory Effort/Chest Expansion: normal Auscultation: Clear to auscultation bilaterally
Gastrointestinal: abdomen not tender, no distension, normal abdominal bowel sounds
Genitourinary: No Fuentes
Rectal Exam: Deferred
Extremities: Edema: None Cyanosis: None Trophic changes: None
Neurology Exam:
Orientation: Alert, Oriented to Self, Time, Place
Memory: Intact for basic information
Speech: Intact
Repetition: Intact
Comprehension: Intact
Two step command: Intact
Naming: Intact
Cranial Nerves:
CNII: Pupillary light reflex: Intact Visual Field: Abnormal
CN III, IV, : Extraocular muscles: Intact, nystagmus
CN V: Facial Sensation at Forehead: Intact , Maxilla: Intact, Mandible: Intact
CN VII: Facial movement: Flattening of the nasolabial fold on the right side
CN VIII: Hearing: Normal
CN IX/X: Speech & swallow: Normal, Position of Uvula: Midline
CN XI: Shoulder shrug: Symmetric
CN XII: Tongue protrusion: Midline
Sensory:
Light touch: Intact in bilateral lower extremities, decreased sensation on the dorsum of the right hand
Reflexes:
Biceps: 2+ bilaterally
Brachioradialis: 2+ bilaterally
Triceps: 2+ bilaterally
Patellar: 2+ bilaterally
Achilles: 2+ bilaterally
Babinski: Downgoing bilaterally
Clonus: None
Kilo: Negative bilaterally
Cerebellar: Dysmetria/Ataxia: None
Musculoskeletal: Motor: (Manual muscle scale 0-5)
Muscle SA EF WE EE FF FA HF KE DF EHL PF
Right 3 4 5 4 4 4 4+ 5 4 5 5
Left 5 5 5 5 5 5 5 5 4+ 5 5
Tone: Normal in all extremities
Range of Motion: Passively within normal limits in all extremities
Assessment / Plan
Plan
Assessment:
84-year-old right-handed M PMH (BPH, legally blind from open angle glaucoma) with acute onset right-sided weakness on 09/12/2024 from an acute to subacute infarction involving the left paramedian judith, a focus of old infarction involving the superior
medial left lentiform nucleus, extending across the internal capsule with involvement of the posterior and inferior aspect of the head of the left caudate nucleus with ADL, ambulatory, and speech dysfunction.
Plan:
PM&R PT/OT to increase independence with ADLs, improve balance, coordination, endurance, strength, mobility, community reintegration, decreased burden of care on others and family education.
CVA: Secondary prophylaxis with aspirin/plavix for 21 days, aspirin lifelong per neurology, statin, and blood pressure control (SBP less than 180 and diastolic less than 100 to participate with therapy for ischemic stroke). Continue to monitor
neurologic status.
Right dominant hemiparesis: High risk for falls and sliding out of chair/bed. Safety reinforced.
- Avoid using affected arm to help lift or pull patient as this will cause trauma to the shoulder.
Dysarthria: speech
HLD: Statin
Prediabetes: HbA1C 5.8%, check glucose level with labs.
BPH: finasteride
Psych: Monitor mood, adjust medications as needed.
Skin: monitor for pressure sores/rashes/lesions.
Pain: acetaminophen as needed.
Bowel: Colace and Senna, PRN bisacodyl.
Bladder: Time void, PVRs, PRN straight cath.
DVT Prophylaxis: Heparin subcutaneously, mechanical
Safety: Continue to reinforce assistance with all transfers.
Code Status: Full code
Dispo (date/plan/equipment needs): Acute rehab. Social history reviewed.
Functional and Medical Goals: Modified Independent with ADL�s, ambulation, transfers
Discharge Destination: Acute inpatient rehabilitation
Summary of recommendations:
- Discharge Destination: Acute inpatient rehabilitation
CVA: Secondary prophylaxis with aspirin/plavix for 21 days, aspirin lifelong per neurology, statin, and blood pressure control (SBP less than 180 and diastolic less than 100 to participate with therapy for ischemic stroke).
Right dominant hemiparesis: High risk for falls and sliding out of chair/bed. Safety reinforced.
- Avoid using affected arm to help lift or pull patient as this will cause trauma to the shoulder.
Dysarthria: speech
Bowel: Colace and Senna, PRN bisacodyl.
Bladder: Time void, PVRs, PRN straight cath.
Thank you for allowing me to care for your patient. Please contact me with any questions or concerns.
I personally performed a history and physical exam of the patient and discussed management with the resident. I reviewed the resident's note and agree with the documented findings and plan of care with changes made that represent my findings/plan
--- NOTE | 2024-09-14 13:48 | PTOTSP ---
Speech Therapy Evaluation:
Pt presents with clinical signs of oropharyngeal dysphagia, likely acute in nature related to acute/subacute L paramedian judith infarct. Pt demonstrated occasional anterior loss of liquids to R and consistent s/sx of aspiration following ingestion of
thin liquids via cup. No overt s/sx of aspiration over extensive trials of thin liquids via straw (single and consecutive sips). Attempted 3oz swallow screen with straw, however not successfully completed given interrupted drinking. Despite this, no
s/sx of aspiration following consecutive sips via straw. No s/sx of aspiration with puree/regular. Per chart, pt with no ST hx, pt passed swallow screen, and WBC WNL.
Recommend:
1. IDDSI Level 7 (regular) solids and thin liquids via STRAW ONLY
2. Medications as tolerated
3. Strict aspiration/ reflux precautions
4. COTTON STRIPPER to follow to monitor tolerance of diet and determine if pt would benefit from VSE
--- NOTE | 2024-09-14 14:42 | PTCARENOTE ---
Patient ambulating to bathroom with assist x1 and walker. Patient coughing intermittently with thin liquids. Patient was bale to take PO meds without any difficulty this am. Patient is now pocketing pill. Med taken without difficulty crushed in
applesauce
--- NOTE | 2024-09-14 15:09 | CM ---
Patient seen at bedside with son-in-law Laurie
tt from [facility] inpatient - IMM explained & signed. In chart
PT/OT rec Acute Rehab
Spoke with Silvina at [facility] - referral added in [facility]
tt hospitalist
Will need to obtain authorization
PLAN: [facility], pending bed avail
--- NOTE | 2024-09-14 16:08 | CM ---
Patient accepted at [facility] for tomorrow 09/15/24, need to call to see when bed will be ready .
[facility] NPI# [id number]
Dr Sosa NPI# [id number]
Spoke with Evie from [facility]
Approved Acute Rehab
Auth # [id number]
Start date 09/15/24, LCD/NRD 09/21/24
updates to p# [phone]
[facility] Liaison updated
[facility]
report# [phone]
[2024-09-14] MEDS: LIPITOR 40 MG PO (17:30)
--- NOTE | 2024-09-14 18:29 | W.PN.NEURO.1 ---
Today's Communication / Plan
-
.
Subjective/Objective
Subjective Data
Date of Service: September 14, 2024
Neurology follow-up note.
24-hour events, mildly hypertensive, afebrile.
Right-sided weakness has been improving.
Brain MRI showed an acute�subacute left paramedial infarct
LDL 98, hemoglobin A1c�5.8.
TTE-no evidence of intramural thrombus or PFO.
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
PSH: left frontal kristie holes
SH: ; originally from [place], retired teacher, lives with family; ambulates with no assistive device
FH: No family history of neurodegenerative disease
All:NKDA
ROS: Positive for right-sided weakness
General: Well developed. In no acute distress.
Cardio: Regular rate and rhythm. Extremities are without cyanosis or edema.
Neuro:
Mental Status: Alert, oriented to person, year, months. Follows simple requests consistently.
Cranial Nerves: Corneal opacification. No light perception OU. No blink to threat. Right facial weakness. Hearing is preserved. Reported mild dysarthria
Motor: Mild right pronator drift. No right leg drift.
Sensory: Limited sensory exam due to language barrier and comprehension
Coordination: Unable to assess due to blindness
Gait: deferred
Assessment and Plan:
I. 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
II. Mixed chronic encephalopathy
III. Blindness.
-Blood pressure goal�normotension
-TTE
-DAPT for 3 weeks
-Lipitor 40 mg QHS.
-PT
-DVT prophylaxis.
-Outpatient neurology follow-up
-Please recall neurology services any questions or concerns
I personally reviewed all radiology and labs along with past medical records pertinent to current medical problems. Total time spent in patient care is 35 minutes.
Thank you for allowing us to participate in the care of this patient. Please do not hesitate to contact us with any questions or concerns.
Objective Data
Vital Signs
Temp Pulse Resp BP Pulse Ox
36.5 C 68 18 143/78 95
09/14/24 11:02 09/14/24 11:02 09/14/24 11:02 09/14/24 11:02 09/14/24 11:02
Lab Results
09/14/24 06:07
09/14/24 06:07
Sodium 142 mmol/L (135-145) 09/14/24 06:07
Potassium 4.0 mmol/L (3.5-5.1) 09/14/24 06:07
BUN 12 mg/dl (9-20) 09/14/24 06:07
Glucose 99 mg/dl (70-99) 09/14/24 06:07
Calcium 9.2 mg/dl (8.4-10.2) 09/14/24 06:07
LDL Cholesterol, Calc 98 mg/dl 09/13/24 05:51
Patient Allergies
No Known Allergies Allergy (Verified 09/12/24 10:36)
Vital Signs and Labs
-
Vital Signs and Labs:
Vital Signs
Temp Pulse Resp BP Pulse Ox
36.5 C 68 18 143/78 95
09/14/24 11:02 09/14/24 11:02 09/14/24 11:02 09/14/24 11:02 09/14/24 11:02
Lab Results
09/14/24 06:07
09/14/24 06:07
Sodium 142 mmol/L (135-145) 09/14/24 06:07
Potassium 4.0 mmol/L (3.5-5.1) 09/14/24 06:07
BUN 12 mg/dl (9-20) 09/14/24 06:07
Glucose 99 mg/dl (70-99) 09/14/24 06:07
Calcium 9.2 mg/dl (8.4-10.2) 09/14/24 06:07
LDL Cholesterol, Calc 98 mg/dl 09/13/24 05:51
Medications
-
Medications:
Generic Name Dose Route Start Last Admin
Trade Name Freq PRN Reason Stop Dose Admin
Acetaminophen 650 mg 09/12/24 14:41
Acetaminophen 650 Mg Rectal Suppository RECTAL 10/10/24 14:40
Q4HPRN PRN
GUADARRAMA, mild pain, or temp >100.4F
Acetaminophen 650 mg 09/12/24 14:41
Acetaminophen 325 Mg Tablet PO 10/10/24 14:40
Q4HPRN PRN
GUADARRAMA, mild pain, or temp >100.4F
Aspirin 81 mg 09/13/24 08:00 09/14/24 10:13
Aspirin 81 Mg Chewable Tablet PO 10/11/24 07:59 81 mg
DAILY TERELL Administration
Atorvastatin Calcium 40 mg 09/12/24 18:00 09/14/24 17:30
Atorvastatin (Lipitor) 40 Mg Tablet PO 10/10/24 17:59 40 mg
QPM TERELL Administration
Clopidogrel Bisulfate 75 mg 09/12/24 14:00 09/14/24 10:13
Clopidogrel 75 Mg Tablet PO 10/02/24 08:01 75 mg
DAILY TERELL Administration
Finasteride 5 mg 09/13/24 08:00 09/14/24 10:13
Finasteride 5 Mg Tablet PO 10/11/24 07:59 5 mg
DAILY TERELL Administration
Heparin Sodium 5,000 units 09/13/24 16:00 09/14/24 17:29
Heparin 5,000 Units/Ml 1 Ml Vial SC 10/11/24 15:59 5,000 units
Q8 TERELL Administration
Home Medications
-
Home Medications
finasteride 5 mg tablet 5 mg PO DAILY Urinary Issue 09/12/24
tamsulosin 0.4 mg capsule 0.4 mg PO DAILY Urinary Issue 09/14/24
[2024-09-15] VITALS (7 sets, daily range): BP systolic 133–164; BP diastolic 74–94; PULSE 64; O2SAT 96
[2024-09-15] MEDS: PROSCAR 5 MG PO (08:47)
[2024-09-15] MEDS: PLAVIX 75 MG PO (08:47)
[2024-09-15] MEDS: HEPARIN 5000 UNITS SC ×3 (08:48→23:55)
[2024-09-15] MEDS: LOW STRENGTH ASPIRIN 81 MG PO (08:48)
--- NOTE | 2024-09-15 09:51 | CM ---
Spoke with Silvina from [facility] - Bed available tomorrow 09/16
tt hospitalist - Silvina spoke with family
auth approved
Approved Acute Rehab
Auth # [id number]
Start date 09/15/24, LCD/NRD 09/21/24
updates to p# [phone]
[facility] Liaison updated
PLAN: [facility]
report# [id number]
--- NOTE | 2024-09-15 12:51 | W.PN.HOSP.TC ---
Today's Communication/Plan
-
Potential dc to [facility] tomorrow
Assessment / Plan
Assessment / Plan
#Acute to subacute infarction involving the left paramedian judith.
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
-Telemetry monitoring
-Dysphagia evaluation
-TTE
-DAPT for 3 weeks
-Lipitor 40 mg QHS.
-PT
-DVT prophylaxis.
� A1c 5.8%
input of neuro appreciated
#Hyperlipidemia
� Continue statin
#Blindness, legally blind
Echo: Normal biventricular size and systolic function without regional wall motion
abnormality. Estimated LVEF 50-55%.
Aortic sclerosis without stenosis. Trace aortic regurgitation.
Mild/moderate tricuspid regurgitation. Mildly elevated PASP. Estimated
pulmonary artery pressure of 38 mmHg assuming a right atrial pressure of 3
mmHg.
Interatrial septum is intact with no evidence of shunting by color flow
# BPH
-Finasteride and Flomax continued
# DVT prophylaxis
hsq
reviewed with son-in-law, Laurie 09/14
family requesting [facility] with plan to go home post rehab
speech eval: 1. IDDSI Level 7 (regular) solids and thin liquids via STRAW ONLY
2. Medications as tolerated
3. Strict aspiration/ reflux precautions
4. HYDRAULIC DREDGE OPERATOR to follow to monitor tolerance of diet and determine if pt would benefit from VSE
as per physician advisor, change status to full inpt
# CODE STATUS
Full code-
notified by CM, [facility] will accept pt 4/2
Anticipated Discharge: Within 24 hours
Subjective/Interval History
-
Date of Service: September 15, 2024
Pt appears comfortable
Objective Data
-
Vital Signs:
Vital Signs
Temp Pulse Resp BP Pulse Ox
97.8 F 77 16 156/77 97
09/15/24 11:14 09/15/24 11:14 09/15/24 11:14 09/15/24 11:14 09/15/24 11:14
I&O
09/14/24 09/15/24 09/16/24
06:59 06:59 06:59
Intake Total 120 / 120 960 / 960
Balance 120 / 120 960 / 960
Review of Systems
-
History Source: Coordinated Provider
Constitutional: Denies Fever
EENT: Reports No Symptoms Reported
Respiratory: Reports No Symptoms
Cardiac: Reports No Symptoms; Denies Chest Pain
Abdomen/GI: Reports No Symptoms
Musculoskeletal: Reports Muscle Weakness (rt sided)
Physical Exam
-
General: Well Developed, Well Nourished and No Apparent Distress
HEENT: Normocephalic, Atraumatic and Moist Mucous Membranes
Respiratory: Clear to Auscultation; Negative Wheezes, Rales or Rhonchi
Cardiac: Regular Rhythm and S1/S2
GI: Soft, Nontender and Nondistended
Musculoskeletal: No Clubbing, No Cyanosis and No Edema
Neuro: Awake and Alert; Negative No Motor Deficits (rt sided weakness)
Psych: Calm
[2024-09-15] MEDS: LIPITOR 40 MG PO (17:09)
--- NOTE | 2024-09-15 18:27 | PTCARENOTE ---
pt post stroke depression screen completed by this nurse while using the application operations engineer on the iPad. Pt answered yes to the first question. elaborating that he is not in a good mood while being alone in the hospital, he also stated to the diplomatic interpreter
that he does ot speak [place]ian and cannot communicate with people. this nurse used the Ipad several times to communicate with the pt throughout the day to make sure he didn't have unmet needs. Pt notified recreational therapy aide neurologist Dr. Coffey about
positive screen. Family is at the bedside with the patient for dinner.
[2024-09-16 07:22] VITALS: BP 130/80
[2024-09-16] MEDS: LOW STRENGTH ASPIRIN 81 MG PO (07:40)
[2024-09-16] MEDS: HEPARIN 5000 UNITS SC ×3 (07:41→23:44)
[2024-09-16] MEDS: PLAVIX 75 MG PO (07:41)
[2024-09-16] MEDS: PROSCAR 5 MG PO (07:42)
--- NOTE | 2024-09-16 08:39 | W.PN.HOSP.TC ---
Today's Communication/Plan
-
VSE
Assessment / Plan
Assessment / Plan
#Acute to subacute infarction involving the left paramedian judith.
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
-Telemetry monitoring
-Dysphagia eval - pt seen by sherry ALMARAZ to continue IDDSI 7, though recommend VSE to confirm ability to tolerate. Evaluation was completed late 09/15, unable to schedule VSE 09/15 and unit will be unavailable today to complete VSE. pt tentatively
scheduled to go to [facility] today, and was just notified that [facility] would like this completed prior to his transfer
-TTE: Normal biventricular size and systolic function without regional wall motion
abnormality. Estimated LVEF 50-55%.
Aortic sclerosis without stenosis. Trace aortic regurgitation.
Mild/moderate tricuspid regurgitation. Mildly elevated PASP. Estimated
pulmonary artery pressure of 38 mmHg assuming a right atrial pressure of 3
mmHg.
Interatrial septum is intact with no evidence of shunting by color flow
Doppler.
-DAPT for 3 weeks
-Lipitor 40 mg QHS.
-PT
-DVT prophylaxis.
� A1c 5.8%
input of neuro appreciated
#Hyperlipidemia
� Continue statin
#Blindness, legally blind
# BPH
-Finasteride and Flomax continued
# DVT prophylaxis
hsq
reviewed with son-in-law, Laurie 09/16
family requesting [facility] with plan to go home post rehab
speech eval: 1. IDDSI Level 7 (regular) solids and thin liquids via STRAW ONLY
2. Medications as tolerated
3. Strict aspiration/ reflux precautions
4. SUCTION PLATE CARRIER CLEANER to follow to monitor tolerance of diet and determine if pt would benefit from VSE
as per physician advisor, change status to full inpt
Discussed with CM, hold transfer and obtain VSE and modify diet
# CODE STATUS
Full code-
Anticipated Discharge: 24 - 48 hours
Subjective/Interval History
-
Date of Service: September 16, 2024
Calm, as per nursing last BM 09/13
Objective Data
-
Vital Signs:
Vital Signs
Temp Pulse Resp BP Pulse Ox
97.8 F 73 17 130/80 97
09/16/24 07:22 09/16/24 07:22 09/16/24 07:22 09/16/24 07:22 09/16/24 07:22
I&O
09/15/24 09/16/24 09/17/24
06:59 06:59 06:59
Intake Total 960 / 960 960 / 960
Output Total 500 / 500
Balance 960 / 960 460 / 460
Review of Systems
-
History Source: Coordinated Provider
Constitutional: Denies Fever
EENT: Reports No Symptoms Reported
Respiratory: Reports No Symptoms
Cardiac: Reports No Symptoms; Denies Chest Pain
Abdomen/GI: Reports No Symptoms
Musculoskeletal: Reports Muscle Weakness (rt sided)
Physical Exam
-
General: Well Developed, Well Nourished and No Apparent Distress
HEENT: Normocephalic, Atraumatic and Moist Mucous Membranes
Respiratory: Clear to Auscultation; Negative Wheezes, Rales or Rhonchi
Cardiac: Regular Rhythm and S1/S2
GI: Soft, Nontender and Nondistended
Musculoskeletal: No Clubbing, No Cyanosis and No Edema
Neuro: Awake and Alert; Negative No Motor Deficits (rt sided weakness)
Psych: Calm
--- NOTE | 2024-09-16 09:20 | CM ---
Spoke with Silvina from [facility]
Bed available today
Approved Acute Rehab
Auth # [id number]
Start date 09/15/24, LCD/NRD 09/21/24
updates to p# [phone]
IMM explained & signed - in chart
PLAN: [facility]
Report# [phone]
[2024-09-16 14:50] VITALS: BP 119/80
[2024-09-16] MEDS: LIPITOR 40 MG PO (17:25)
[2024-09-16 23:00] VITALS: BP 150/72
[2024-09-17 06:28] LABS: % Basophils 0.2 % (0-2); % Eosinophils 3.3 % (0-6); % Immature Granulocytes 0.4 % (0-0.5); % Lymphocytes 28.1 % (20.5-51.1); % Monocytes 9.4 % (1.7-9.3); % Neutrophils 58.6 % (42.2-75.2); Absolute Eosinophils 0.2 10^3/uL (0-0.7); Absolute Lymphocytes 1.5 10^3/uL (1.2-3.4); Absolute Monocytes 0.5 10^3/uL (0.1-0.6); Hemoglobin 13.4 g/dL (13.0-18.0); Mean Corp Hgb Conc. 34.4 g/dL (33.0-37.0); Mean Corpuscular Hgb 32.8 pg (27.0-31.0); Mean Corpuscular Volume 95.4 fL (80.0-94.0); Mean Platelet Volume 10.1 fL (7.4-10.4); Nucleated Red Blood Cells % 0 % (-); Platelet Count 152 10^3/uL (130-400); Red Blood Cell Count 4.09 10^6/uL (4.70-6.10); Red Cell Dist. Width 13.2 % (11.5-14.5); White Blood Cell Count 5.2 10^3/uL (4.8-10.8)
[2024-09-17 06:49] LABS: Blood Urea Nitrogen 18 mg/dl (9-20); Calcium 9.2 mg/dl (8.4-10.2); Carbon Dioxide 29 mmol/L (22-30); Chloride 109 mmol/L (98-107); Estimated Creatinine Clearance 43 ml/min; Glucose 106 mg/dl (70-99); Potassium 4.3 mmol/L (3.5-5.1); Sodium 145 mmol/L (135-145); eGFR > 60.00
[2024-09-17 07:25] VITALS: BP 135/72
[2024-09-17] MEDS: PROSCAR 5 MG PO (08:45)
[2024-09-17] MEDS: PLAVIX 75 MG PO (08:45)
[2024-09-17] MEDS: LOW STRENGTH ASPIRIN 81 MG PO (08:45)
[2024-09-17] MEDS: HEPARIN 5000 UNITS SC ×2 (08:45→17:12)
--- NOTE | 2024-09-17 11:51 | PTOTSP ---
Addendum entered and electronically signed by ST Evaristo 09/17/24 11:54:
*Intermittent cough/reswallow
Original Note:
Videofluoroscopic swallow study
Mild-moderate oral/pharyngeal dysphagia. See patient care note for details.
Recommend:
1. IDDSI Level 6 Soft/Bite Sized, IDDSI Level 2 Mildly Thick Liquids
2. Medications: in puree or with sips of thickened liquids
3. Strategies: assist with meal tray set up/feeding as needed, alternate sips/bites, multiple swallows
4. Aspiration risk hydration protocol - small single sips of water after oral care, between meals
5. Oral care 3x daily
6. Dysphagia tx at the acute care level and after D/C for instruction in compensations, pharyngeal exercises, and to determine timing of repeat video swallow study.
--- NOTE | 2024-09-17 13:13 | CM ---
video swallow completed
Spoke with Echo at [facility] - can accept patient to [facility] today
IMM signed. In chart
PLAN: [facility] today
Report# [phone]
[2024-09-17 14:55] VITALS: BP 156/75
--- NOTE | 2024-09-17 15:36 | W.PN.HOSP.TC ---
Today's Communication/Plan
-
dc to [facility]
see dictated note
Assessment / Plan
Assessment / Plan
#Acute to subacute infarction involving the left paramedian judith.
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
-Telemetry monitoring
-Dysphagia eval - pt seen by sherry ALMARAZ to continue IDDSI 7, though recommend VSE to confirm ability to tolerate. Evaluation was completed late 09/15, unable to schedule VSE 09/15 and unit will be unavailable today to complete VSE. pt tentatively
scheduled to go to [facility] today, and was just notified that [facility] would like this completed prior to his transfer
-TTE: Normal biventricular size and systolic function without regional wall motion
abnormality. Estimated LVEF 50-55%.
Aortic sclerosis without stenosis. Trace aortic regurgitation.
Mild/moderate tricuspid regurgitation. Mildly elevated PASP. Estimated
pulmonary artery pressure of 38 mmHg assuming a right atrial pressure of 3
mmHg.
Interatrial septum is intact with no evidence of shunting by color flow
Doppler.
-DAPT for 3 weeks
-Lipitor 40 mg QHS.
-PT
-DVT prophylaxis.
� A1c 5.8%
input of neuro appreciated
#Hyperlipidemia
� Continue statin
#Blindness, legally blind
# BPH
-Finasteride and Flomax continued
# DVT prophylaxis
hsq
reviewed with son-in-lawLaurie 09/16
family requesting [facility]hab with plan to go home post rehab
speech eval: 1. IDDSI Level 7 (regular) solids and thin liquids via STRAW ONLY
2. Medications as tolerated
3. Strict aspiration/ reflux precautions
4. HOSPITAL CLEANING SPECIALIST to follow to monitor tolerance of diet and determine if pt would benefit from VSE
as per physician advisor, change status to full inpt
VSE: Airway aspiration noted with thin liquids
dc to [facility]
see dictated note
# CODE STATUS
Full code-
More than 30 minutes spent in discharge including
Final examination of the patient
Summarizing hospital stay
Instructions for continuing care to all relevant caregivers
Preparation of discharge records, prescriptions, and referral forms
Total time spent (in minutes): 45
Anticipated Discharge: Today
Subjective/Interval History
-
Date of Service: September 17, 2024
Notified that [facility] can take patient now
Objective Data
-
Labs:
Laboratory Results
09/17/24
05:56
WBC 5.2
Hgb 13.4
Hct 39.0
Plt Count 152
Sodium 145
Potassium 4.3
Chloride 109 H
Carbon Dioxide 29
BUN 18
Creatinine 1.1
Glucose 106 H
Calcium 9.2
Vital Signs:
Vital Signs
Temp Pulse Resp BP Pulse Ox
97.5 F 62 17 156/75 97
09/17/24 14:55 09/17/24 14:55 09/17/24 14:55 09/17/24 14:55 09/17/24 14:55
I&O
09/16/24 09/17/24 09/18/24
06:59 06:59 06:59
Intake Total 960 / 960 840 / 840
Output Total 500 / 500
Balance 460 / 460 840 / 840
Review of Systems
-
History Source: Coordinated Provider
Constitutional: Denies Fever
EENT: Reports No Symptoms Reported
Respiratory: Reports No Symptoms
Cardiac: Reports No Symptoms; Denies Chest Pain
Abdomen/GI: Reports No Symptoms
Musculoskeletal: Reports Muscle Weakness (rt sided)
Physical Exam
-
General: Well Developed, Well Nourished and No Apparent Distress
HEENT: Normocephalic, Atraumatic and Moist Mucous Membranes
Respiratory: Clear to Auscultation; Negative Wheezes, Rales or Rhonchi
Cardiac: Regular Rhythm and S1/S2
GI: Soft, Nontender and Nondistended
Musculoskeletal: No Clubbing, No Cyanosis and No Edema
Neuro: Awake and Alert; Negative No Motor Deficits (rt sided weakness)
Psych: Calm
[2024-09-17 15:57] VITALS: BP 151/74; PULSE 66; O2SAT 99
[2024-09-17] MEDS: LIPITOR 40 MG PO (17:12)
--- NOTE | 2024-09-18 07:21 | W.DS.TRANS ---
DC Summary - Non Licensed Operator
-
Discharge Instructions:
Discharge Diagnosis/Procedures CVA
Additional Diets IDDSI 6, nectar thick liquids, with aspiration
risk protocol
Activity With assistance
Driving Restrictions No driving
Bathing Restrictions None
Instructions:
Stand-Alone Forms:
Changes to Home Medications: Yes
Discharge Medications:
DC Medications w/original date entered in [employer]
finasteride 5 mg tablet 5 mg PO DAILY Urinary Issue 09/12/24
tamsulosin 0.4 mg capsule 0.4 mg PO DAILY Urinary Issue 09/14/24
acetaminophen 325 mg tablet 650 mg (2 x 325 mg) PO Q4HPRN PRN GUADARRAMA, mild pain, or temp >100.4F #0 tabs 09/17/24
aspirin 81 mg chewable tablet 81 mg PO DAILY #0 tabs 09/17/24
atorvastatin 40 mg tablet 40 mg PO QPM #0 tabs 09/17/24
clopidogrel 75 mg tablet 75 mg PO DAILY #20 tabs 09/17/24
heparin (porcine) 5,000 unit/mL injection solution 5,000 unit SC Q8 #0 mL 09/17/24
magnesium hydroxide 400 mg/5 mL oral suspension (Milk of Magnesia) 30 ml PO DAILY PRN NO BM #0 mL 09/17/24
Home Medication Changes
Plavix for 20 more doses
continue aspirin daily
continue Lipitor daily
Pending Results: No
== END 2024-09-17 17:36 | DRG 65 ==
LOC: 3 WEST ACU 12:49
PROVIDERS: Internal Medicine; Registered Nurse; ADMITTING PHYSICIAN Internal Medicine; ATTENDING PHYSICIAN Internal Medicine; CONSULT PHYSICIAN Physical Medicine & Rehabilitation; CONSULT PHYSICIAN Psychiatry & Neurology Neurology; EMERGENCY PHYSICIAN Emergency Medicine; FAMILY PHYSICIAN Internal Medicine
DX: I63.9 Cerebral infarction, unspecified (principal); G81.91 Hemiplegia, unspecified affecting right dominant side; G93.40 Encephalopathy, unspecified; H54.8 Legal blindness, as defined in USA; G46.5 Pure motor lacunar syndrome; N40.0 Benign prostatic hyperplasia without lower urinary tract symptoms; E78.5 Hyperlipidemia, unspecified; I70.0 Atherosclerosis of aorta; I69.322 Dysarthria following cerebral infarction
CPT/HCPCS: 70450; 70496; 70498; 70551; 74230; 80048; 80053; 80061; 82077; 83036; 85025; 85027; 92526; 92610; 92611; 93005; 93306; 97116; 97163; 97167; 97530; 97535; 99291; Q9967